=== PATIENT | female | born 1950 | race Caucasian/White ===

== ENCOUNTER 2019-05-02 11:06 | Emergency (ER) | payer SELFPAY ==
[~2019-05-02] VITALS: Ht 162.6 cm; Wt 90.5 kg
[~2019-05-02 11:06] MED LIST: AZIT250T PO; D-ME473S2 PO; IBUP-1542 PO
[2019-05-02 11:11] VITALS: BP 147/62; PULSE 72; RESP 18; Ht 162.6 cm; Wt 90.5 kg
== END 2019-05-02 12:57 | disposition home or self-care (01) ==
LOC: E/R 11:06
DX: J06.9 Acute upper respiratory infection, unspecified (principal)
CPT/HCPCS: 99283